=== PATIENT | male | born 1970 | race Two or more races ===

== ENCOUNTER 2018-09-27 20:46 | Inpatient (IN) | payer OTHER ==
--- NOTE | 2018-09-27 21:18 | HP ---
CIWA Score Nausea/Vomitin Muscle Tremors: 3 Anxiety: 3 Agitation: 2 Paroxysmal Sweats: 3 Orientation: 0-Oriented Tacttile Disturbances: 2-Mild Itch/Numbness/Burn Auditory Disturbances: 2-Mild Harshness/Frighten Visual Disturbances: 3-Moderate Sensitivity Headache: 3-Moderate CIWA-Ar Total Score: 24 - Admission Criteria [facility]AS[facility] Guidelines: Admission for Medically Managed Detox: Requires at least one of the followin. CIWA greater than 12 2. Seizures within the past 24 hours 3. Delirium tremens within the past 24 hours 4. Hallucinations within the past 24 hours 5. Acute intervention needed for co occurring medical disorder 6. Acute intervention needed for co occurring psychiatric disorder 7. Severe withdrawal that cannot be handled at a lower level of care (continued vomiting, continued diarrhea, abnormal vital signs) requiring intravenous medication and/or fluids 8. Admission ROS [facility] - HPI Chief Complaint: DEPENDENT ON ETOH, COCAINE, MARIJUANA AND K2 Allergies/Adverse Reactions: Allergies Allergy/AdvReac Type Severity Reaction Status Date / Time No Known Allergies Allergy Verified 09/27/18 21:19 History of Present Illness: THE PT. IS REQUESTING ADMISSION TO THE DETOX UNIT AND CAME FOR H AND PE Exam Limitations: No Limitations - Ebola screening Have you traveled outside of the country in the last 21 days: No (N) Have you had contact with anyone from an Ebola affected area: No Do you have a fever: No - Review of Systems Constitutional: See HPI, Loss of Appetite, Malaise, Night Sweats, Weakness, Unintentional Wgt. Loss EENT: reports: See HPI, Tearing Respiratory: reports: See HPI Cardiac: reports: See HPI, Syncope GI: reports: See HPI, Nausea, Poor Appetite, Poor Fluid Intake, Indigestion, Abdominal cramping : reports: See HPI Musculoskeletal: reports: See HPI, Muscle Pain, Muscle Weakness Integumentary: reports: See HPI, Flushing, Sweating Neuro: reports: See HPI, Headache, Tremors, Weakness Endocrine: reports: See HPI Hematology: reports: See HPI Psychiatric: reports: Judgement Intact, Orientated x3, Anxious, Depressed Patient History - Patient Medical History Hx Seizures: Yes (ETOH RELATED SEIZURE - LAST EPISODE 09/26/2018) Hx Gastrointestinal Disorders: Yes (GERD) Hx Human Immunodeficiency Virus (HIV): No Hx Hepatitis C: No Hx Depression: Yes (AND ANXIETY) Hx Suicide Attempt: No Other Medical History: INSOMNIA - Patient Surgical History Past Surgical History: No - Smoking Cessation Smoking history: Current every day smoker Have you smoked in the past 12 months: Yes Aproximately how many cigarettes per day: 40 Hx Chewing Tobacco Use: No Initiated information on smoking cessation: Yes 'Breaking Loose' booklet given: 09/27/18 - Substance & Tx. History Hx Alcohol Use: Yes Hx Substance Use: Yes Substance Use Type: Alcohol, Cocaine, Marijuana Hx Substance Use Treatment: Yes - Substances Abused Alcohol Route: Oral Frequency: Daily Amount used: BEER 1X6 PK/LIQUOR 1 P/D Age of first use: 17 Date of Last Use: 09/27/18 Cocaine Route: Smoking Frequency: Daily Amount used: 5 BAGS/D Age of first use: 23 Date of Last Use: 09/27/18 Marijuana/Hashish Route: Smoking Frequency: Daily Amount used: 2 BLUNTS OF K2/D Age of first use: 21 Date of Last Use: 09/27/18 Family Disease History - Family Disease History Family History: Denies Admission Physical Exam [facility] - Physical General Appearance: Yes: No Apparent Distress, Nourished, Appropriately Dressed , Alcohol on Breath, Tremorous, Sweating, Anxious HEENTM: Yes: Hearing grossly Normal, Normocephalic, Normal Voice, IVAN, Pharynx Normal Respiratory: Yes: Chest Non-Tender, Lungs Clear, Normal Breath Sounds, No Respiratory Distress, No Accessory Muscle Use Neck: Yes: No masses,lesions,Nodules, Supple, Trachea in good position Breast: Yes: Breast Exam Deferred, Axillae without masses Cardiology: Yes: Regular Rhythm, Regular Rate, S1, S2 Abdominal: Yes: Normal Bowel Sounds, Non Tender, Flat Back: Yes: Normal Inspection Musculoskeletal: Yes: full range of Motion, Gait Steady, Pelvis Stable, Muscle Pain, Muscle weakness Extremities: Yes: Normal Capillary Refill, Normal Range of Motion, Non-Tender, Tremors Neurological: Yes: motorcycle deliverer II-XII NML intact, Fully Oriented, Alert, Motor Strength 5/5, Normal Response, Depressed Affect Integumentary: Yes: Warm, Moist Lymphatic: Yes: Within Normal Limits - Diagnostic (1) EtOH dependence Current Visit: Yes Status: Chronic Qualifiers: Substance use status: uncomplicated Qualified Code(s): F10.20 - Alcohol dependence, uncomplicated (2) Cocaine dependence Current Visit: Yes Status: Chronic Qualifiers: Substance use status: uncomplicated Qualified Code(s): F14.20 - Cocaine dependence, uncomplicated (3) Cannabis dependence Current Visit: Yes Status: Chronic (4) Cigarette nicotine dependence Current Visit: Yes Status: Chronic Qualifiers: Substance use status: uncomplicated Qualified Code(s): F17.210 - Nicotine dependence, cigarettes, uncomplicated (5) GERD (gastroesophageal reflux disease) Current Visit: Yes Status: Chronic Qualifiers: Esophagitis presence: esophagitis presence not specified Qualified Code(s) : K21.9 - Gastro-esophageal reflux disease without esophagitis (6) Insomnia Current Visit: Yes Status: Chronic Qualifiers: Insomnia type: unspecified Qualified Code(s): G47.00 - Insomnia, unspecified (7) Anxiety with depression Current Visit: Yes Status: Chronic Cleared for Admission [facility] - Detox or Rehab [facility] Level of Care: Medically Managed Detox Regimen/Protocol: Librium [facility] Breath Alcohol Content Breath Alcohol Content: 0.040 Inpatient Rehab Admission - Rehab Decision to Admit Inpatient rehab admission?: No
[2018-09-27] MEDS ORDERED: NICOTINE POLACRILEX 4 MG GUM BC PRN (21:28)
[2018-09-27] MEDS ORDERED: ACETAMINOPHEN 325 MG TABLET (FP) PO PRN (21:28)
[2018-09-27] MEDS ORDERED: LOPERAMIDE HCL 2 MG CAPSULE PO PRN (21:28)
[2018-09-27] MEDS ORDERED: MENTHOL/PHENOL 1 EACH UD MM PRN (21:28)
[2018-09-27] MEDS ORDERED: hydrOXYzine PAMOATE 50 MG CAPSULE (FP) PO PRN (21:28)
[2018-09-27] MEDS ORDERED: MAGNESIUM HYDROX 2400MG/30ML ORAL SUSPENSION 30 ML CUP PO PRN (21:28)
[2018-09-27] MEDS ORDERED: chlordiazePOXIDE HCL 25 MG CAPSULE PO ONE (21:28)
[2018-09-27] MEDS ORDERED: guaiFENesin/D-METHORPHAN HB 10 ML UNIT-DOSE CUPS PO PRN (21:28)
[2018-09-27] MEDS ORDERED: chlordiazePOXIDE HCL 25 MG CAPSULE PO PRN (21:28)
[2018-09-27] MEDS ORDERED: IBUPROFEN 400 MG TABLET (FP) PO PRN (21:28)
[2018-09-27] MEDS ORDERED: MAGNESIUM CITRATE 300 ML BOTTLE PO PRN (21:28)
[2018-09-27] MEDS ORDERED: P-EPHED 60MG/TRIPROLIDI 2.5MG TABLET PO PRN (21:28)
[2018-09-27] MEDS ORDERED: MAG HYDROX/AL HYDROX/SIMETH 30 ML UNIT-DOSE CUP PO PRN (21:28)
[2018-09-27 21:36] VITALS: BMI 24.3
[2018-09-27] MEDS ORDERED: THIAMINE HCL 100 MG TABLET (FP) PO SCH (22:00)
[2018-09-27] MEDS ORDERED: MELATONIN 5 MG TABLETS PO PRN (22:00)
[2018-09-27] MEDS: chlordiazePOXIDE HCL 25 MG CAPSULE PO SCH (23:05)
[2018-09-27] MEDS: PANTOPRAZOLE 40 MG TABLET (FP) PO SCH (23:05)
[2018-09-28] MEDS: chlordiazePOXIDE HCL 25 MG CAPSULE PO SCH ×3 (06:13→17:50)
--- NOTE | 2018-09-28 09:29 | CONSULT ---
[facility] Psychiatric Consult - Data Date of interview: 09/28/18 Admission source: [facility] Identifying data: THE PT. IS REQUESTING ADMISSION TO THE DETOX UNIT AND CAME FOR H AND PE Substance Abuse History: Smoking history: Current every day smoker. Have you smoked in the past 12 months: Yes. Aproximately how many cigarettes per day: 40. Hx Chewing Tobacco Use: No. Initiated information on smoking cessation: Yes. 'Breaking Loose' booklet given: 09/27/18. - Substance & Tx. History. Hx Alcohol Use: Yes. Hx Substance Use: Yes. Substance Use Type: Alcohol, Cocaine , Marijuana. Hx Substance Use Treatment: Yes. - Substances Abused. Alcohol. Route: Oral. Frequency: Daily. Amount used: BEER 1X6 PK/LIQUOR 1 P/ D. Age of first use: 17. Date of Last Use: 09/27/18. Cocaine. Route: Smoking. Frequency: Daily. Amount used: 5 BAGS/D. Age of first use: 23. Date of Last Use: 09/27/18. Marijuana/Hashish. Route: Smoking. Frequency: Daily. Amount used: 2 BLUNTS OF K2/D. Age of first use: 21. Date of Last Use : 09/27/18 Medical History: GERD, Psychiatric History: PATIENT REFUSING PSYCHIATRIC EVALUATION. PER CHART SUFFERS ANXIETYAND DEPRESSION , HAS BEEN TAKING IN THE PAST: Abilify 15mg poqd. Zoloft 50mg poqd Physical/Sexual Abuse/Trauma History: Unclear Additional Comment: Refusing [id number] evaluation. Consider: Abilify 15mg poqd. Zoloft 50mg poqd Mental Status Exam - Mental Status Exam Mood: Angry Patient Behavior: Uncooperative Speech Pattern: Pressured Additional Comments: Refusing [id number] evaluation. Consider: Abilify 15mg poqd. Zoloft 50mg poqd Psychiatric Findings - Problem List ([place] 1, 2,3) (1) Anxiety with depression Current Visit: Yes Status: Chronic (2) Cannabis dependence Current Visit: Yes Status: Chronic (3) Cigarette nicotine dependence Current Visit: Yes Status: Chronic Qualifiers: Substance use status: uncomplicated Qualified Code(s): F17.210 - Nicotine dependence, cigarettes, uncomplicated (4) Cocaine dependence Current Visit: Yes Status: Chronic Qualifiers: Substance use status: uncomplicated Qualified Code(s): F14.20 - Cocaine dependence, uncomplicated (5) EtOH dependence Current Visit: Yes Status: Chronic Qualifiers: Substance use status: uncomplicated Qualified Code(s): F10.20 - Alcohol dependence, uncomplicated (6) GERD (gastroesophageal reflux disease) Current Visit: Yes Status: Chronic Qualifiers: Esophagitis presence: esophagitis presence not specified Qualified Code(s) : K21.9 - Gastro-esophageal reflux disease without esophagitis (7) Insomnia Current Visit: Yes Status: Chronic Qualifiers: Insomnia type: unspecified Qualified Code(s): G47.00 - Insomnia, unspecified - Initial Treatment Plan Initial Treatment Plan: Refusing [id number] evaluation. Consider: Abilify 15mg poqd. Zoloft 50mg poqd
[2018-09-28] MEDS ORDERED: BACITRACIN 0.9 GM PACKET TP SCH (10:00)
[2018-09-28] MEDS ORDERED: NICOTINE 21 MG/24 HOURS TOPICAL PATCH TD SCH (10:00)
[2018-09-28] MEDS ORDERED: PRENATAL VITAMINS W/ FOLIC ACID TABLET (FP) PO SCH (10:00)
[2018-09-28 10:01] LABS: HEMATOCRIT 43.6 % (35.4-49); HEMOGLOBIN 14.7 GM/dL (11.7-16.9); MCH 31.8 pg (25.7-33.7); MCHC 33.8 g/dl (32.0-35.9); MEAN CELL VOLUME 94.1 fl (80-96); MEAN PLT VOLUME 8.6 fl (7.5-11.1); PLATELET COUNT 174 K/MM3 (134-434); RBC 4.63 M/mm3 (4.00-5.60); RDW 13.3 % (11.9-15.9); WHITE BLOOD COUNT 5.7 K/mm3 (4.0-10.0)
[2018-09-28 10:04] LABS: ALBUMIN 3.6 g/dl (3.4-5.0); ALK PHOS 62 U/L (45-117); ANION GAP 6 MMOL/L (8-16); BILIRUBIN,TOTAL 0.7 mg/dL (0.2-1); BLOOD UREA NITROGEN 17 mg/dL (7-18); CALCIUM 8.6 mg/dL (8.5-10.1); CHLORIDE 104 mmol/L (98-107); CO2 28 mmol/L (21-32); CREATININE 1.1 mg/dL (0.55-1.3); GLUCOSE,RANDOM 78 mg/dL (74-106); SGOT/AST 17 U/L (15-37); SGPT/ALT 19 U/L (13-61); SODIUM 139 mmol/L (136-145); TOT PROT 7.2 g/dl (6.4-8.2)
--- NOTE | 2018-09-28 10:25 | CONSULT ---
[facility] Psychiatric Consult - Data Date of interview: 09/28/18 Admission source: [facility] Identifying data: This is 48 years old male
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
[2018-09-28] MEDS: PANTOPRAZOLE 40 MG TABLET (FP) PO SCH (13:28)
[2018-09-28 22:43] VITALS: TEMP 98.1
[2018-09-29] MEDS: chlordiazePOXIDE HCL 25 MG CAPSULE PO SCH ×2 (05:23)
[2018-09-29 07:02] VITALS: BP 92/50; PULSE 56
--- NOTE | 2018-09-29 08:36 | PN ---
[facility] Progress Note Note: pt came to the nurses station stating I want to sign out. Pt was asked why if there is anything we (staff) can assist with his care but he insisted that he wants to leave and is going to meet with his friends. Pt was under the impression he was going to a near by detox and he is far from home. pt prefers to leave and go home. Pt signed AMA.
--- NOTE | 2018-09-29 08:37 | DS ---
[facility] Detox Discharge Summary Admission Date: 09/27/18 - History Present History: Alcohol Dependence, Cannabis Dependence, Cocaine Dependence - Physical Exam Results Vital Signs: Vital Signs Temperature 98.1 F 09/29/18 07:01 Pulse Rate 56 L 09/29/18 07:01 Respiratory Rate 16 09/29/18 07:01 Blood Pressure 92/50 L 09/29/18 07:01 O2 Sat by Pulse Oximetry (%) - Treatment Hospital Course: Discharged Condition Good - Medication Discharge Medications: Ambulatory Orders Aripiprazole [Abilify] 15 mg PO DAILY 09/27/18 Sertraline HCl [Zoloft -] 50 mg PO DAILY 09/27/18 - Diagnosis (1) Anxiety with depression Current Visit: Yes Status: Chronic (2) Cannabis dependence Current Visit: Yes Status: Chronic (3) Cigarette nicotine dependence Current Visit: Yes Status: Chronic Qualifiers: Substance use status: uncomplicated Qualified Code(s): F17.210 - Nicotine dependence, cigarettes, uncomplicated (4) Cocaine dependence Current Visit: Yes Status: Chronic Qualifiers: Substance use status: uncomplicated Qualified Code(s): F14.20 - Cocaine dependence, uncomplicated (5) EtOH dependence Current Visit: Yes Status: Chronic Qualifiers: Substance use status: uncomplicated Qualified Code(s): F10.20 - Alcohol dependence, uncomplicated (6) GERD (gastroesophageal reflux disease) Current Visit: Yes Status: Chronic Qualifiers: Esophagitis presence: esophagitis presence not specified Qualified Code(s) : K21.9 - Gastro-esophageal reflux disease without esophagitis (7) Insomnia Current Visit: Yes Status: Chronic Qualifiers: Insomnia type: unspecified Qualified Code(s): G47.00 - Insomnia, unspecified - AMA Did Patient Leave Against Medical Advice: Yes (going home. )
[2018-09-29] MEDS ORDERED: chlordiazePOXIDE 5 MG CAPSULE PO SCH (23:00)
[2018-09-30] MEDS ORDERED: chlordiazePOXIDE HCL 10 MG CAPSULE PO SCH (23:00)
== END 2018-09-29 09:07 | disposition home or self-care (01) | DRG 897 ==
LOC: YASAS 20:46 → Y6N 22:34
PROVIDERS: ADMIT Surgery; ATTEND Surgery
PROC: HZ2ZZZZ Detoxification Services for Substance Abuse Treatment (ICD-10-PCS; principal; 2018-09-27)
DX: F10.230 Alcohol dependence with withdrawal, uncomplicated (principal); F14.20 Cocaine dependence, uncomplicated; F12.20 Cannabis dependence, uncomplicated; F17.210 Nicotine dependence, cigarettes, uncomplicated; F41.8 Other specified anxiety disorders; K21.9 Gastro-esophageal reflux disease without esophagitis; G47.00 Insomnia, unspecified; Z86.69 Personal history of other diseases of the nervous system and sense organs
CPT/HCPCS: 36415; 80053; 85027; 86593

== ENCOUNTER 2024-09-09 00:20 | Inpatient (IN) | payer OTHER ==
[2024-09-09 00:44] VITALS: BMI 21.2
[2024-09-09] MEDS ORDERED: BENZONATATE 200 MG CAPSULE PO PRN (01:13)
[2024-09-09] MEDS ORDERED: NALOXONE (NARCAN) HCL 4 MG/0.1 ML SPRAY NS PRN (01:13)
[2024-09-09] MEDS ORDERED: guaiFENesin 600 MG TABLET.ER (FP) PO PRN (01:13)
[2024-09-09] MEDS ORDERED: chlordiazePOXIDE HCL 25 MG CAPSULE PO PRN (01:13)
[2024-09-09] MEDS ORDERED: ACETAMINOPHEN 325 MG TABLET (FP) PO PRN (01:13)
[2024-09-09] MEDS ORDERED: MAGNESIUM HYDROX 2400MG/30ML ORAL SUSPENSION 30 ML CUP PO PRN (01:13)
[2024-09-09] MEDS ORDERED: MAG HYDROX/AL HYDROX/SIMETH 30 ML UNIT-DOSE CUP PO PRN (01:13)
[2024-09-09] MEDS ORDERED: IBUPROFEN 400 MG TABLET (FP) PO PRN (01:13)
[2024-09-09] MEDS ORDERED: NICOTINE POLACRILEX 4 MG GUM BUC PRN (01:13)
[2024-09-09] MEDS ORDERED: LOPERAMIDE HCL 2 MG CAPSULE PO PRN (01:13)
[2024-09-09] MEDS ORDERED: DICYCLOMINE HCL 10 MG CAPSULE PO PRN (01:13)
[2024-09-09] MEDS ORDERED: ONDANSETRON *ODT* 4 MG TABLET SL PRN (01:13)
[2024-09-09] MEDS ORDERED: POLYETHYLENE GLYCOL (HEALTHYLAX) 3350 17 GM PACKET PO PRN (01:13)
[2024-09-09] MEDS ORDERED: BENZOCAINE/MENTHOL (CHLORASEPTIC ) LOZENGE MM PRN (01:13)
[2024-09-09] MEDS ORDERED: BISMUTH SUBSALICYLATE 524 MG/30 ML PO PRN (01:13)
[2024-09-09] MEDS ORDERED: ALBUTEROL SO4 HFA INHALER IH PRN (01:17)
[2024-09-09] MEDS: chlordiazePOXIDE HCL 25 MG CAPSULE PO SCH (05:27)
[2024-09-09] MEDS: NICOTINE 21 MG/24 HOURS TOPICAL PATCH TD SCH (10:03)
[2024-09-09] MEDS: PRENATAL VITAMINS W/ FOLIC ACID TABLET (FP) PO SCH (10:04)
[2024-09-09] MEDS: FAMOTIDINE 20 MG TABLET PO SCH (10:58)
[2024-09-09] MEDS: hydrOXYzine PAMOATE 25 MG CAPSULE (FP) PO PRN (13:56)
[2024-09-09] MEDS: METHOCARBAMOL 500 MG TABLET PO PRN (13:56)
[2024-09-09] MEDS: MELATONIN 5 MG TABLETS PO SCH (23:09)
[2024-09-09] MEDS: THIAMINE 100 MG TABLET PO SCH (23:10)
[2024-09-10] MEDS: chlordiazePOXIDE HCL 25 MG CAPSULE PO SCH (05:36)
[2024-09-10 21:04] VITALS: RESP 18
[2024-09-10] MEDS: MELATONIN 5 MG TABLETS PO SCH (22:22)
[2024-09-10] MEDS: ARIPiprazole 5 MG TABLET PO SCH (22:22)
[2024-09-11] MEDS ORDERED: chlordiazePOXIDE HCL 10 MG CAPSULE PO PRN
[2024-09-11] MEDS: IBUPROFEN 600 MG TABLET (FP) PO PRN (04:02)
[2024-09-11 06:15] VITALS: BP 108/60; PULSE 61; TEMP 98
[2024-09-11] MEDS: chlordiazePOXIDE HCL 10 MG CAPSULE PO SCH (07:14)
[2024-09-11 09:14] LABS: BASO % 0.9 % (0-2.0); EOS % 2.5 % (0-4.5); HEMATOCRIT 43.9 % (35.4-49); HEMOGLOBIN 14.4 GM/dL (11.7-16.9); LYMPH % 28.1 % (8-40); MCH 31.2 pg (25.7-33.7); MCHC 32.9 g/dl (32.0-35.9); MEAN CELL VOLUME 94.8 fl (80-96); MEAN PLT VOLUME 8.9 fl (7.5-11.1); MONO % 9.5 % (3.8-10.2); PLATELET COUNT 219 10^3/uL (134-434); RBC 4.63 M/mm3 (4.00-5.60); RDW 12.5 % (11.9-15.9); WHITE BLOOD COUNT 7.6 K/mm3 (4.0-10.0)
[2024-09-11 09:20] LABS: POTASSIUM 3.8 mmol/L (3.5-5.1)
[2024-09-11 09:27] LABS: ALBUMIN 3.9 g/dl (3.4-5.0); BLOOD UREA NITROGEN 13.2 mg/dL (7-18)
[2024-09-11 09:29] LABS: CALCIUM 9.4 mg/dL (8.5-10.1)
[2024-09-11 09:32] LABS: BILIRUBIN,TOTAL 0.6 mg/dL (0.2-1)
[2024-09-11] MEDS: SERTRALINE HCL 50 MG TABLET (FP) PO SCH (10:54)
[2024-09-12] MEDS ORDERED: chlordiazePOXIDE HCL 10 MG CAPSULE PO SCH (05:00)
[2024-09-13] MEDS ORDERED: chlordiazePOXIDE HCL 10 MG CAPSULE PO ONE (05:00)
== END 2024-09-11 09:42 | disposition home or self-care (01) | DRG 897 ==
LOC: YASAS 00:20 → Y3N 01:57
PROVIDERS: ADMIT Allergy & Immunology; ATTEND Allergy & Immunology
PROC: HZ2ZZZZ Detoxification Services for Substance Abuse Treatment (ICD-10-PCS; principal; 2024-09-09)
DX: F10.230 Alcohol dependence with withdrawal, uncomplicated (principal); F14.20 Cocaine dependence, uncomplicated; F12.20 Cannabis dependence, uncomplicated; F17.210 Nicotine dependence, cigarettes, uncomplicated; F19.24 Other psychoactive substance dependence with psychoactive substance-induced mood disorder; F41.9 Anxiety disorder, unspecified; F32.A Depression, unspecified; J45.20 Mild intermittent asthma, uncomplicated; K21.9 Gastro-esophageal reflux disease without esophagitis; Z91.148 Patient's other noncompliance with medication regimen for other reason
CPT/HCPCS: 36415; 80053; 80305; 85025; 93005; 93010